=== PATIENT | male | born 1995 | race Caucasian/White ===

== ENCOUNTER 2017-10-11 03:14 | Emergency (ER) | payer SELFPAY ==
[2017-10-11 03:15] VITALS: BP 150/87; PULSE 120; RESP 18; TEMP 36.6; O2SAT 96; BMI 27.1
--- NOTE | 2017-10-11 03:19 | ED.RN ---
PT STATES 5HRS AGO HE FELL DOWN STAIRS AND HURT IS RT JAW. NO OTHER INJURIES OR OTHER C/O OF PAIN.
--- NOTE | 2017-10-11 03:23 | RAD_ITS ---
STUDY: X-RAY - MANDIBLE (COMPLETE) REASON FOR EXAM: Male, 21 years old. Right-sided jaw pain after fall downstairs. TECHNIQUE: 5 view(s) of the mandible were obtained. COMPARISON: Prior comparison studies are not available for review at this time. FINDINGS: Normal mandible. Normal visualized right temporomandibular joint. Normal visualized left temporomandibular joint. The remaining visualized osseous structures are normal. The soft tissue structures are unremarkable. There is no demonstrated fracture. RAD/Mandible Min 4 Views IMPRESSION: No radiographic evidence for acute fracture. Electronically Signed: Antonina Higginbotham MD at 4:44 EDT , Service support ,
--- NOTE | 2017-10-11 03:24 | ED.DCSUM_ITS ---
- ER Visit Summary Date of Service: 10/11/17 Chief Complaint: [] Right jaw injury History of Present Illness: The patient is a 21 M [] with the above. He injured it earlier today. He stated that he tripped on some steps and injured his right jaw. He is having pain in this area. He was seen as an emergency department and told imaging would take several hours of the left prior to getting imaging. Hurts to move his jaw. He has been drinking alcohol today has not taken any pain medicine. Physical Examination: [] Vital signs reviewed General: Well-nourished well-developed Head: Normocephalic atraumatic Eyes: Pupils equal round and reactive to light extraocular movements intact ENT: TMs clear no hemotympanum no trauma. Tenderness to the right jawline. No deformity or crepitus. Normal opening closing of the mouth. Can move his jaw around without problems. TMJ palpated feels normal Neck: Nontender full range of motion Cardiovascular: Regular rate rhythm no murmurs normal S1-S2 Respiratory: No distress clear to auscultation bilaterally chest nontender Abdomen: Soft nontender nondistended normal bowel sounds no masses Back: Nontender no CVA tenderness Extremities: Nontender active range of motion ?4 extremities no trauma Skin: Normal color no trauma Neuro alert oriented cranial nerves II through XII intact normal strength sensation reflexes Test Results: [] Emergency Department Course and Treatment: [] Mandible x-ray negative. At this time I think the patient is has a mandible contusion. Will be discharged Treatment Plan: [] Disposition: [] Impression: [] Mandible contusion This note was generated with [employer] dictation software. It may contain incorrect words, spelling, and punctuation that were not noted in review of the chart prior to signing ED Disposition - Plan for ED Patient: Chief Complaint: Other, Pain/Inj Referrals: Ibrahima Green MD [Primary Care Provider] -
--- NOTE | 2017-10-11 04:50 | ED.DEP ---
ED Disposition - Plan for ED Patient: Disposition: Home or Assisted Living Chief Complaint: Other, Pain/Inj Instructions: Contusions (Bruises) Referrals: Ibrahima Green MD [Primary Care Provider] -
[2017-10-11 04:54] VITALS: BP 122/66; PULSE 101; RESP 17; O2SAT 96
== END 2017-10-11 04:55 | disposition home or self-care (01) ==
PROVIDERS: Emergency Provider Emergency Medicine; Family Provider Pediatrics; PCP Pediatrics
DX: S00.83XD Contusion of other part of head, subsequent encounter (principal); W18.40XD Slipping, tripping and stumbling without falling, unspecified, subsequent encounter
CPT/HCPCS: 70110; 99282